=== PATIENT | female | born 1970 | race Caucasian/White ===

== ENCOUNTER 2023-12-16 00:51 | Emergency (ER) | payer OTHER ==
[2023-12-16 01:03] VITALS: RESP 18; BMI 40.8
[2023-12-16] MEDS ORDERED: DIPHTH,PERTUSS(ACELL),TET 0.5 ML DISP.SYRIN IM ONE (01:32)
[2023-12-16] MEDS: DIPHTH,PERTUSS(ACELL),TET 0.5 ML DISP.SYRIN IM ONE (01:41)
[2023-12-16 01:45] LABS: BASO % 0.4 % (0-2.0); EOS % 10.5 % (0-4.5); HEMATOCRIT 35.9 % (32.4-45.2); HEMOGLOBIN 11.8 GM/dL (10.7-15.3); MCH 25.8 pg (25.7-33.7); MCHC 32.9 g/dl (32.0-36.0); MEAN CELL VOLUME 78.3 fl (80-96); MEAN PLT VOLUME 8.7 fl (7.5-11.1); MONO % 8.4 % (3.8-10.2); NEUT % 60.7 % (42.8-82.8); PLATELET COUNT 295 10^3/uL (134-434); RBC 4.58 M/mm3 (3.60-5.2); RDW 16.3 % (11.6-15.6)
[2023-12-16 02:09] LABS: POTASSIUM 4.7 mmol/L (3.5-5.1)
[2023-12-16 02:10] LABS: CALCIUM 8.4 mg/dL (8.5-10.1)
[2023-12-16 02:11] LABS: ALBUMIN 3.3 g/dl (3.4-5.0); BLOOD UREA NITROGEN 20.2 mg/dL (7-18)
[2023-12-16 02:14] LABS: CREATININE 0.8 mg/dL (0.55-1.3)
[2023-12-16 02:16] LABS: BILIRUBIN,TOTAL 0.4 mg/dL (0.2-1); TOT PROT 6.9 g/dl (6.4-8.2)
[2023-12-16 04:33] VITALS: BP 150/80; PULSE 65; TEMP 98.1
== END 2023-12-16 04:44 | disposition home or self-care (01) ==
LOC: JER 00:51
PROC: 3E033GC Introduction of Other Therapeutic Substance into Peripheral Vein, Percutaneous Approach (ICD-10-PCS; principal; 2023-12-16)
PROC: 3E0234Z Introduction of Serum, Toxoid and Vaccine into Muscle, Percutaneous Approach (ICD-10-PCS; 2023-12-16)
DX: S50.821A Blister (nonthermal) of right forearm, initial encounter (principal); S50.822A Blister (nonthermal) of left forearm, initial encounter; R20.2 Paresthesia of skin; T54.3X1A Toxic effect of corrosive alkalis and alkali-like substances, accidental (unintentional), initial encounter; Z20.822 Contact with and (suspected) exposure to COVID-19; Z23 Encounter for immunization; Y99.0 Civilian activity done for income or pay
CPT/HCPCS: 36415; 80053; 84703; 85025; 86140; 87635; 90715; 99284-25